=== PATIENT | male | born 1980 | race Caucasian/White ===

== ENCOUNTER 2016-12-08 14:35 | Emergency (ER) | payer OTHER ==
[~2016-12-08] VITALS: Ht 180.3 cm; Wt 123.6 kg
[2016-12-08 15:36] LABS: HEMATOCRIT 49.8 % (38.0-50.0); MCH 29.6 PG (29.0-34.0); MCHC 34.7 G/DL (30.0-36.0); MCV 85.3 FL (86-99); MEAN PLAT.VOLUME 10.7 uM^3 (9.0-12.4); PLATELET COUNT 309 K/uL (156-360); RBC DIS.WIDTH-CV 13.8 % (11.8-14.6); RBC DIS.WIDTH-SD 42.7 % (39-53); RED BLOOD COUNT 5.84 M/uL (4.00-5.50); WHITE BLOOD COUNT 12.8 K/uL (4.1-10.2)
[2016-12-08 15:46] LABS: D-DIMER ELISA 0.21 mg/L FEU (< 0.57)
[2016-12-08 15:47] LABS: CHLORIDE 105 mEq/L (99-109); POTASSIUM 3.6 mEq/L (3.7-5.4); SODIUM 135 mEq/L (136-147)
[2016-12-08 15:49] LABS: GLUCOSE 117 mg/dL (70-99)
[2016-12-08 15:50] LABS: ANION GAP 10 MEQ/L (2-14)
[2016-12-08 15:51] LABS: TOTAL BILIRUBIN 0.4 mg/dL (0.0-1.0)
[2016-12-08 15:52] LABS: ALKALINE PHOSPHATASE 72 IU/L (3-129)
[2016-12-08 15:53] LABS: GFR ESTIMATE (CALCULATED) > 59 mL/min/
[2016-12-08 15:54] LABS: UREA NITROGEN (BUN) 16 mg/dL (9-23)
[2016-12-08 15:56] LABS: CREATINE KINASE 114 IU/L (1-294); TROP-I INTERPRETATION NEGATIVE; TROPONIN-I < 0.01 ng/mL (0.0-0.30)
[2016-12-08] MEDS ORDERED: PRILOSEC20 MG PO (16:20)
[2016-12-08] MEDS ORDERED: LEVO-T150 MCG PO (16:20)
[2016-12-08] MEDS ORDERED: ZOFRAN4 MG PO (16:47)
[2016-12-08 17:32] VITALS: BP 141/84
== END 2016-12-08 17:50 | disposition home or self-care (01) ==
LOC: EME 14:35
PROVIDERS: Emergency Medicine
DX: R55 Syncope and collapse (principal); R11.2 Nausea with vomiting, unspecified; F17.200 Nicotine dependence, unspecified, uncomplicated
CPT/HCPCS: 80053; 82550; 84484; 85027; 85379; 93005; 99281; 99285; J2405; J7030